=== PATIENT | female | born 1955 | race Caucasian/White ===

== ENCOUNTER 2017-11-05 16:25 | Inpatient (IN) ==
[2017-11-05] MEDS ORDERED: ACETAMINOPHEN 325 MG TABLET PO PRN (17:17)
[2017-11-05] MEDS ORDERED: SODIUM CHLORIDE 0.9% 1,000 ML IV PRN (17:17)
[2017-11-05] MEDS ORDERED: MAGNESIUM HYDROXIDE SUSP 30 ML UDCUP PO PRN (17:17)
[2017-11-05] MEDS ORDERED: ONDANSETRON 4 MG/2 ML VIAL IV PRN (17:17)
[2017-11-05] MEDS ORDERED: ZALEPLON 5 MG CAPSULE PO PRN (17:35)
[2017-11-05] MEDS ORDERED: DIPHENOXYLATE/ATROPINE 2.5-0.025 MG TABLET PO ONE (17:49)
[2017-11-05] MEDS ORDERED: NYSTATIN 500,000 UNIT/5 ML UDCUP SWISH/SWAL SCH (18:00)
[2017-11-05 18:47] LABS: Basophils % 0.2 % (0.0-0.8); Eosinophils # 0.2 10*3/uL (0.0-0.87); Eosinophils % 2.7 % (0.00-10.9); Hematocrit 22.1 VOL% (35.7-47.0); Hemoglobin 6.6 GM/DL (12.0-16.0); Immature Granulocytes % 0.8 %; Immature Granulocytes Absolute 0.05 #; Lymphocytes # 1.6 10*3/uL (1.4-4.0); Lymphocytes % 25.2 % (21.3-54.2); Mean Corpuscular HGB Conc 29.9 GM/DL (32-36); Mean Corpuscular Hemoglobin 22 PG (27-34); Mean Corpuscular Volume 73.9 FL (87-102); Mean Platelet Volume 9.4 FL (9.6-12.0); Monocytes # 0.8 10*3/uL (0.11-0.8); Monocytes % 12.3 % (1.7-12.7); Neutrophils # 3.7 10*3/uL (1.4-7.4); Neutrophils % 58.8 % (38.7-73.9); Platelet Count 633 T/CUMM (130-400); Red Blood Count 2.99 MC/CUMM (3.8-5.5); Red Cell Distribution Width 18.6 % (9.3-17.3); White Blood Count 6.2 T/CUMM (4-12)
[2017-11-05 19:01] LABS: Alanine Aminotransferase 37 U/L (13-56); Albumin 2.4 G/DL (3.4-5.0); Alkaline Phosphatase 101 U/L (45-117); Aspartate Amino Transferase 31 U/L (0-37); Bilirubin,Total < 0.39 MG/DL (0.2-1.0); Blood Urea Nitrogen 83 MG/DL (7-18); Calcium 8.7 MG/DL (8.5-10.1); Glucose 85 MG/DL (74-106); Osmolality,Calculated 298.7 MOS/KG (273-304); Potassium 4.9 MMOL/L (3.5-5.1); Sodium 138 MMOL/L (136-145); Total Protein 6.5 G/DL (6.4-8.3)
[2017-11-05 19:10] LABS: Folate 10.5 NG/ML (5.4-24.0); Vitamin B12 1039 PG/ML (211-911)
[2017-11-05] MEDS: FLUCONAZOLE 200 MG TABLET PO SCH (19:37)
[2017-11-05] MEDS: SODIUM CHLORIDE 0.9% 1,000 ML IV SCH (21:05)
[2017-11-05 22:20] LABS: Anisocytosis Slight; Microcytosis 2+; Ovalocytes Few; Platelet Estimate Increased; Poikilocytosis Slight
[2017-11-06 00:32] LABS: Sedimentation Rate-Westergren 132 MM/HR (0-30)
[2017-11-06] MEDS: SODIUM CHLORIDE 0.9% 1,000 ML IV SCH ×3 (01:30→19:20)
[2017-11-06 03:05] LABS: Apearance,Urine Slightly Hazy (Clear); Bacteria,Urine Occasional /HPF (Few); Bilirubin,Urine Negative (Negative); Blood, Urine Small mg/dL (Negative); Glucose,Urine (UA) Negative (Negative); Hyaline Casts,Urine 2 /LPF (0-3); Ketones,Urine Negative (Negative); Nitrite,Urine Positive (Negative); Protein,Urine Negative; RBC,Urine 1 /HPF (0-4); Squamous Epithelial Cell,Urine Occasional /HPF (0-10); Urine Color Yellow (Yellow); Urine Specific Gravity 1.012 (1.001-1.035); Urine Urobilinogen < 2.0 EU/DL (0.2-1.0); WBC,Urine 17 /HPF (0-6)
[2017-11-06 05:35] LABS: Basophils % 0.5 % (0.0-0.8); Eosinophils # 0.2 10*3/uL (0.0-0.87); Eosinophils % 2.9 % (0.00-10.9); Hematocrit 22.3 VOL% (35.7-47.0); Immature Granulocytes Absolute 0.06 #; Lymphocytes # 1.2 10*3/uL (1.4-4.0); Lymphocytes % 19.9 % (21.3-54.2); Mean Corpuscular HGB Conc 28.7 GM/DL (32-36); Mean Corpuscular Hemoglobin 22 PG (27-34); Mean Corpuscular Volume 75.6 FL (87-102); Mean Platelet Volume 9.5 FL (9.6-12.0); Monocytes # 0.7 10*3/uL (0.11-0.8); Monocytes % 11.6 % (1.7-12.7); Neutrophils # 3.7 10*3/uL (1.4-7.4); Neutrophils % 64.1 % (38.7-73.9); Platelet Count 630 T/CUMM (130-400); Red Blood Count 2.95 MC/CUMM (3.8-5.5); Red Cell Distribution Width 18.4 % (9.3-17.3); White Blood Count 5.8 T/CUMM (4-12)
[2017-11-06 06:09] LABS: Hemoglobin 6.4 GM/DL (12.0-16.0)
[2017-11-06 06:10] LABS: Calcium 8.1 MG/DL (8.5-10.1); Osmolality,Calculated 295.4 MOS/KG (273-304); Potassium 4.7 MMOL/L (3.5-5.1); Risk Ratio 3.07; VLDL CHOLESTEROL 33.4 MG/DL
[2017-11-06 06:23] LABS: Band Neutrophils 2 % (0-10); Eosinophils 6 % (0-10); Lymphocytes 20 % (20-55); Platelet Estimate Increased; Segmented Neutrophils 56 % (50-85); Total Cells Counted 100
[2017-11-06 06:24] LABS: Giant Platelets Few; Hypochromasia 1+; Microcytosis Slight; Ovalocytes Slight
[2017-11-06] MEDS: traMADol 50 MG TABLET PO SCH ×3 (09:03→21:16)
[2017-11-06] MEDS: FLUoxetine 20 MG CAPSULE PO SCH (09:03)
[2017-11-06] MEDS: PANTOPRAZOLE 40 MG TABLET PO SCH (09:03)
[2017-11-06] MEDS: IRON (CARBONYL) 45 MG TABLET PO SCH ×2 (09:03→21:15)
[2017-11-06 09:28] LABS: Hematocrit 25.5 VOL% (35.7-47.0)
[2017-11-06 09:34] LABS: Hemoglobin 7.8 GM/DL (12.0-16.0)
[2017-11-06 09:44] LABS: Hemoglobin A1 (Alkaline) 97.6 % (96.5-98.5); Hemoglobin A2 (Alkaline) 2.4 % (1.5-3.5)
[2017-11-06 14:23] LABS: Hematocrit 28.9 VOL% (35.7-47.0); Hemoglobin 8.8 GM/DL (12.0-16.0)
[2017-11-06] MEDS ORDERED: LEVOFLOXACIN INJ 500 MG in PREMIX 1 EACH IV SCH (18:00)
[2017-11-06] MEDS: FLUCONAZOLE 200 MG TABLET PO SCH (18:01)
[2017-11-06] MEDS: LOSARTAN 50 MG TABLET PO SCH (21:15)
[2017-11-06] MEDS: GABAPENTIN 300 MG CAPSULE PO SCH (21:16)
[2017-11-06] MEDS: rOPINIRole 4 MG TABLET PO SCH (21:16)
[2017-11-07 05:52] LABS: Basophils % 0.4 % (0.0-0.8); Eosinophils # 0.2 10*3/uL (0.0-0.87); Eosinophils % 4.2 % (0.00-10.9); Hematocrit 28.3 VOL% (35.7-47.0); Hemoglobin 8.6 GM/DL (12.0-16.0); Immature Granulocytes % 1.5 %; Immature Granulocytes Absolute 0.07 #; Lymphocytes # 1.3 10*3/uL (1.4-4.0); Lymphocytes % 29.1 % (21.3-54.2); Mean Corpuscular HGB Conc 30.4 GM/DL (32-36); Mean Corpuscular Hemoglobin 24 PG (27-34); Mean Corpuscular Volume 78.2 FL (87-102); Mean Platelet Volume 9.7 FL (9.6-12.0); Monocytes # 0.7 10*3/uL (0.11-0.8); Monocytes % 16.3 % (1.7-12.7); Neutrophils # 2.2 10*3/uL (1.4-7.4); Neutrophils % 48.5 % (38.7-73.9); Platelet Count 500 T/CUMM (130-400); Red Blood Count 3.62 MC/CUMM (3.8-5.5); Red Cell Distribution Width 20.4 % (9.3-17.3); White Blood Count 4.5 T/CUMM (4-12)
[2017-11-07 06:09] LABS: Rheumatoid Factor < 15 IU/ML (<15)
[2017-11-07 06:14] LABS: Alanine Aminotransferase 24 U/L (13-56); Alkaline Phosphatase 90 U/L (45-117); Aspartate Amino Transferase 13 U/L (0-37); Bilirubin,Total < 0.39 MG/DL (0.2-1.0); Blood Urea Nitrogen 32 MG/DL (7-18); Calcium 7.4 MG/DL (8.5-10.1); Glucose 106 MG/DL (74-106); Potassium 4.3 MMOL/L (3.5-5.1); Sodium 143 MMOL/L (136-145); Total Protein 5.3 G/DL (6.4-8.3)
[2017-11-07 06:20] LABS: Band Neutrophils 2 % (0-10); Eosinophils 6 % (0-10); Lymphocytes 27 % (20-55); Platelet Estimate Adequate; Segmented Neutrophils 47 % (50-85); Total Cells Counted 100
[2017-11-07 06:21] LABS: Burr Cells Slight; Giant Platelets Few; Hypochromasia 1+; Microcytosis Slight; Ovalocytes Slight
[2017-11-07 06:34] LABS: Ferritin 44.4 ng/ml (8-252)
[2017-11-07] MEDS: IRON (CARBONYL) 45 MG TABLET PO SCH ×2 (08:53→20:25)
[2017-11-07] MEDS: PANTOPRAZOLE 40 MG TABLET PO SCH (08:53)
[2017-11-07] MEDS: traMADol 50 MG TABLET PO SCH ×3 (08:53→20:17)
[2017-11-07] MEDS: FLUoxetine 20 MG CAPSULE PO SCH (08:53)
[2017-11-07 10:45] LABS: % Iron Saturation 7.3 % (18-50)
[2017-11-07] MEDS ORDERED: PSEUDOEPHEDRINE 30 MG TABLET PO PRN (17:32)
[2017-11-07] MEDS: FLUCONAZOLE 200 MG TABLET PO SCH (18:05)
[2017-11-07] MEDS: LEVOFLOXACIN INJ 500 MG in PREMIX 1 EACH IV SCH (18:05)
[2017-11-07] MEDS: SODIUM CHLORIDE 0.9% 1,000 ML IV SCH (19:22)
[2017-11-07] MEDS: rOPINIRole 4 MG TABLET PO SCH (20:25)
[2017-11-07] MEDS: GABAPENTIN 300 MG CAPSULE PO SCH (20:25)
[2017-11-07] MEDS: LOSARTAN 50 MG TABLET PO SCH (20:25)
[2017-11-08] MEDS: SODIUM CHLORIDE 0.9% 1,000 ML IV SCH ×3 (03:20→18:02)
[2017-11-08 05:49] LABS: Basophils % 0.4 % (0.0-0.8); Eosinophils # 0.2 10*3/uL (0.0-0.87); Eosinophils % 3.9 % (0.00-10.9); Hematocrit 27.7 VOL% (35.7-47.0); Hemoglobin 8.2 GM/DL (12.0-16.0); Immature Granulocytes % 3.7 %; Immature Granulocytes Absolute 0.19 #; Lymphocytes # 1.6 10*3/uL (1.4-4.0); Lymphocytes % 30.9 % (21.3-54.2); Mean Corpuscular HGB Conc 29.6 GM/DL (32-36); Mean Corpuscular Hemoglobin 24 PG (27-34); Mean Corpuscular Volume 81.5 FL (87-102); Mean Platelet Volume 9.4 FL (9.6-12.0); Monocytes # 0.8 10*3/uL (0.11-0.8); Monocytes % 15.6 % (1.7-12.7); Neutrophils # 2.3 10*3/uL (1.4-7.4); Neutrophils % 45.5 % (38.7-73.9); Platelet Count 420 T/CUMM (130-400); Red Cell Distribution Width 20.4 % (9.3-17.3); White Blood Count 5.1 T/CUMM (4-12)
[2017-11-08 06:18] LABS: Band Neutrophils 3 % (0-10); Burr Cells Slight; Elliptocytes Few; Eosinophils 5 % (0-10); Giant Platelets Few; Hypochromasia 1+; Lymphocytes 28 % (20-55); Microcytosis Slight; Platelet Estimate Adequate; Segmented Neutrophils 52 % (50-85); Total Cells Counted 100
[2017-11-08 06:29] LABS: Calcium 7.6 MG/DL (8.5-10.1); Osmolality,Calculated 285.8 MOS/KG (273-304); Potassium 4.5 MMOL/L (3.5-5.1)
[2017-11-08 07:20] LABS: Total Protein (Chem) 5.2 G/DL (6.4-8.3)
[2017-11-08] MEDS ORDERED: FAMOTIDINE 20 MG/2 ML VIAL IV ONE (08:30)
[2017-11-08] MEDS ORDERED: DEXAMETHASONE INJ 10 MG in SODIUM CHLORIDE 0.9% 50 ML IV ONE (08:30)
[2017-11-08] MEDS ORDERED: diphenhydrAMINE 50 MG/1 ML VIAL IV ONE (08:30)
[2017-11-08] MEDS ORDERED: ACETAMINOPHEN 500 MG TABLET PO ONE (08:30)
[2017-11-08] MEDS ORDERED: IRON DEXTRAN 25 MG in SYRINGE 1 EACH IV ONE (09:00)
[2017-11-08] MEDS ORDERED: IRON DEXTRAN 1,500 MG in SODIUM CHLORIDE 0.9% 500 ML IV ONE (09:30)
[2017-11-08] MEDS: PANTOPRAZOLE 40 MG TABLET PO SCH (09:36)
[2017-11-08] MEDS: FLUoxetine 20 MG CAPSULE PO SCH (09:36)
[2017-11-08] MEDS: traMADol 50 MG TABLET PO SCH ×3 (09:36→21:00)
[2017-11-08] MEDS: IRON (CARBONYL) 45 MG TABLET PO SCH ×2 (09:36→21:00)
[2017-11-08 09:53] LABS: Albumin (SPE) 2.5 G/DL (3.2-5.3); Albumin (SPE) Rel % 47.5 %; Alpha 1 (SPE) 0.3 G/DL (0.1-0.4); Alpha 1 (SPE) Rel % 6.6 %; Alpha 2 (SPE) 0.9 G/DL (0.4-1.0); Beta (SPE) 0.7 G/DL (0.5-1.1); Beta (SPE) Rel % 12.8 %; Gamma (SPE) 0.8 G/DL (0.7-1.7); Gamma (SPE) Rel % 15.1 %
[2017-11-08] MEDS: LEVOFLOXACIN INJ 500 MG in PREMIX 1 EACH IV SCH (17:59)
[2017-11-08] MEDS: FLUCONAZOLE 200 MG TABLET PO SCH (18:02)
[2017-11-08] MEDS ORDERED: FLUoxetine 20 MG CAPSULE PO SCH (18:36)
[2017-11-08] MEDS: GABAPENTIN 300 MG CAPSULE PO SCH (21:00)
[2017-11-08] MEDS: rOPINIRole 4 MG TABLET PO SCH (21:00)
[2017-11-08] MEDS: LOSARTAN 50 MG TABLET PO SCH (21:00)
[2017-11-08 23:13] VITALS: BP 158/84
[2017-11-09] MEDS ORDERED: LEVOFLOXACIN 500 MG TABLET PO SCH (09:00)
[2017-11-09] MEDS ORDERED: hydroCHLOROthiazide 12.5 MG CAPSULE PO SCH (09:00)
== END 2017-11-08 21:15 | disposition home or self-care (01) | DRG 812 ==
LOC: N.3E 17:42
PROVIDERS: ADMIT Family Medicine; ATTEND Family Medicine

== ENCOUNTER 2018-09-10 16:52 | Inpatient (IN) ==
[~2018-09-10 16:52] MED LIST: ACETAMINOPHEN 325 MG TABLET PO PRN; MAGNESIUM HYDROXIDE SUSP 30 ML UDCUP PO PRN; ONDANSETRON 4 MG/2 ML VIAL IV PRN
[2018-09-10] MEDS ORDERED: ESZOPICLONE 1 MG TABLET PO PRN (16:56)
[2018-09-10] MEDS ORDERED: BENZONATATE 100 MG CAPSULE PO PRN ×2 (16:57→18:04)
[2018-09-10] MEDS ORDERED: SODIUM CHLORIDE 0.9% 1,000 ML IV PRN ×2 (16:59→17:53)
[2018-09-10] MEDS ORDERED: POTASSIUM CHLORIDE INJ 10 MEQ in SODIUM CHLORIDE 0.9% 1,000 ML IV SCH (17:00)
[2018-09-10] MEDS ORDERED: AZITHROMYCIN INJ 250 MG in SODIUM CHLORIDE 0.9% 250 ML IV SCH ×2 (17:00→21:00)
[2018-09-10] MEDS ORDERED: PANTOPRAZOLE 40 MG TABLET PO SCH (17:00)
[2018-09-10] MEDS ORDERED: cefTRIAXone 1,000 MG VIAL IV SCH (17:00)
[2018-09-10] MEDS ORDERED: ZALEPLON 5 MG CAPSULE PO PRN (18:05)
[2018-09-10] MEDS ORDERED: ONDANSETRON 4 MG/2 ML VIAL IV PRN (18:06)
[2018-09-10] MEDS ORDERED: MAGNESIUM HYDROXIDE SUSP 30 ML UDCUP PO PRN (18:07)
[2018-09-10] MEDS ORDERED: ACETAMINOPHEN 325 MG TABLET PO PRN (18:07)
[2018-09-10 18:40] LABS: Basophils % 0.4 % (0.0-0.8); Eosinophils # 0.1 10*3/uL (0.0-0.87); Eosinophils % 0.5 % (0.00-10.9); Immature Granulocytes % 0.9 %; Lymphocytes # 1.5 10*3/uL (1.4-4.0); Lymphocytes % 13.4 % (21.3-54.2); Mean Corpuscular HGB Conc 27.6 GM/DL (32-36); Mean Corpuscular Hemoglobin 21 PG (27-34); Mean Corpuscular Volume 76.4 FL (87-102); Mean Platelet Volume 10.1 FL (9.6-12.0); Monocytes # 0.7 10*3/uL (0.11-0.8); Monocytes % 6.2 % (1.7-12.7); Neutrophils # 8.8 10*3/uL (1.4-7.4); Neutrophils % 78.6 % (38.7-73.9); Platelet Count 441 T/CUMM (130-400); Red Blood Count 2.75 MC/CUMM (3.8-5.5); Red Cell Distribution Width 16.5 % (9.3-17.3); White Blood Count 11.2 T/CUMM (4-12)
[2018-09-10 18:48] LABS: Hemoglobin 5.8 GM/DL (12.0-16.0)
[2018-09-10] MEDS ORDERED: cefTRIAXone 1,000 MG in SYRINGE 1 EACH IV SCH (20:00)
[2018-09-10] MEDS: GABAPENTIN 300 MG CAPSULE PO SCH (20:59)
[2018-09-10] MEDS ORDERED: GABAPENTIN 300 MG CAPSULE PO SCH (21:00)
[2018-09-10] MEDS ORDERED: rOPINIRole 1 MG TABLET PO SCH ×2 (21:00)
[2018-09-11 02:11] LABS: Apearance,Urine CLEAR (Clear); Bilirubin,Urine Negative (Negative); Blood, Urine Negative (Negative); Glucose,Urine (UA) Negative (Negative); Ketones,Urine Negative (Negative); Mucus,Urine Occasional /LPF (Occasional); Nitrite,Urine Negative (Negative); Protein,Urine Negative; RBC,Urine <1 /HPF (0-4); Squamous Epithelial Cell,Urine Occasional /HPF (0-10); Urine Color Yellow (Yellow); Urine Specific Gravity 1.017 (1.001-1.035); Urine Urobilinogen < 2.0 EU/DL (0.2-1.0); WBC,Urine <1 /HPF (0-6)
[2018-09-11] MEDS: POTASSIUM CHLORIDE INJ 10 MEQ in SODIUM CHLORIDE 0.9% 1,000 ML IV SCH ×2 (04:57)
[2018-09-11 08:45] LABS: Basophils # 0.1 10*3/uL (0.0-0.2); Basophils % 0.5 % (0.0-0.8); Eosinophils # 0.1 10*3/uL (0.0-0.87); Hematocrit 28.6 VOL% (35.7-47.0); Hemoglobin 8.3 GM/DL (12.0-16.0); Immature Granulocytes % 0.9 %; Lymphocytes # 1.5 10*3/uL (1.4-4.0); Lymphocytes % 13.6 % (21.3-54.2); Mean Corpuscular Hemoglobin 24 PG (27-34); Mean Platelet Volume 10.8 FL (9.6-12.0); Monocytes # 0.7 10*3/uL (0.11-0.8); Monocytes % 6.3 % (1.7-12.7); Neutrophils # 8.6 10*3/uL (1.4-7.4); Neutrophils % 77.7 % (38.7-73.9); Platelet Count 444 T/CUMM (130-400); Red Blood Count 3.53 MC/CUMM (3.8-5.5); Red Cell Distribution Width 18.4 % (9.3-17.3)
[2018-09-11] MEDS ORDERED: FAMOTIDINE 20 MG/2 ML VIAL IV ONE (09:00)
[2018-09-11] MEDS ORDERED: POTASSIUM CHLORIDE INJ 10 MEQ in SODIUM CHLORIDE 0.9% 1,000 ML IV SCH (09:00)
[2018-09-11] MEDS ORDERED: CETIRIZINE 10 MG TABLET PO ONE (09:00)
[2018-09-11] MEDS ORDERED: FLUoxetine 20 MG CAPSULE PO SCH ×2 (09:00)
[2018-09-11] MEDS ORDERED: ACETAMINOPHEN 500 MG TABLET PO ONE (09:00)
[2018-09-11] MEDS ORDERED: DEXAMETHASONE INJ 10 MG in SODIUM CHLORIDE 0.9% 50 ML IV ONE (09:00)
[2018-09-11] MEDS ORDERED: LOSARTAN/HCTZ 50-12.5 MG TABLET PO SCH ×2 (09:00)
[2018-09-11] MEDS ORDERED: PANTOPRAZOLE 40 MG TABLET PO SCH (09:00)
[2018-09-11] MEDS ORDERED: GRANISETRON 1 MG/1 ML VIAL IV ONE (09:00)
[2018-09-11 09:06] LABS: Albumin 3.2 G/DL (3.4-5.0); Bilirubin,Total 0.4 MG/DL (0.2-1.0); Osmolality,Calculated 288.4 MOS/KG (273-304); Potassium 3.5 MMOL/L (3.5-5.1); Risk Ratio 3.28; Total Protein 7.2 G/DL (6.4-8.3); VLDL CHOLESTEROL 20.4 MG/DL
[2018-09-11] MEDS: GABAPENTIN 300 MG CAPSULE PO SCH (09:35)
[2018-09-11] MEDS ORDERED: IRON DEXTRAN 1,500 MG in SODIUM CHLORIDE 0.9% 500 ML IV ONE (10:00)
[2018-09-11 18:15] VITALS: BP 144/73
[2018-09-11] MEDS ORDERED: CEFDINIR 300 MG CAPSULE PO SCH (21:00)
== END 2018-09-11 18:50 | disposition home or self-care (01) | DRG 812 ==
LOC: N.2E 16:52
PROVIDERS: ADMIT Family Medicine; ATTEND Family Medicine